=== PATIENT | female | born 1990 | race Hispanic/Latino ===

== ENCOUNTER 2017-10-01 09:17 | Inpatient (IN) | payer OTHER ==
[2017-10-01] MEDS ORDERED: Ondansetron HCl/PF 4 MG/2 ML Vial ONE (09:39)
[2017-10-01 09:54] LABS: #Basophils 0.1 thou/uL (0.0-0.2); #Eosinphils 0.3 thou/uL (0.0-0.7); #Lymphocytes 2.4 thou/uL (1.20-3.40); #Monocytes 0.7 thou/uL (0.11-0.59); #Neutrophils 11.5 thou/uL (1.40-6.50); %Basophils 0.5 % (0.0-1.0); %Eosinophils 1.8 % (0.0-10.0); %Lymphocytes 16.1 % (21.0-51.0); %Monocytes 4.8 % (0.0-10.0); %Neutrophils 76.8 % (42.0-75.0); Hemoglobin 12.7 g/dL (12.0-16.0); Mean Corpuscular HGB CONC 33.3 g/dL (32.0-36.0); Mean Corpuscular Hemoglobin 29.6 pg (27.0-31.0); Mean Platelet Volume 6.5 fL (7.4-10.4); Platelet Count 415 thou/uL (130-400); RBC Distribution Width 13.6 % (11.5-14.5); Red Blood Cell (RBC) Count 4.28 mill/uL (4.20-5.40); White Blood Cell (WBC) Count 14.9 thou/uL (4.8-10.8)
[2017-10-01 10:17] LABS: ALT (SGPT) 21 U/L (8-55); AST (SGOT) 23 U/L (5-34); Albumin 3.6 g/dL (3.5-5.0); Alkaline Phosphatase 166 U/L (40-150); Anion Gap 13 mmol/L (10-20); BUN (Urea Nitrogen) 7 mg/dL (7.0-18.7); Bilirubin, Total 0.6 mg/dL (0.2-1.2); Calc. Creatinine Clearance 0 mL/min (70-130); Calcium 9.3 mg/dL (7.8-10.44); Carbon Dioxide 23 mmol/L (22-29); Chloride 106 mmol/L (98-107); Estimated GFR-MDRD Greater than 90; Globulin 3.9 g/dL (2.4-3.5); Glucose 90 mg/dL (70-105); Protein, Total 7.5 g/dL (6.0-8.3); Sodium 138 mmol/L (136-145)
[2017-10-01] MEDS ORDERED: Clindamycin/D5W 900 mg/50 ml Premix Bag ONE (11:13)
[2017-10-01] MEDS ORDERED: Sodium Chloride 0.9% 1,000 ML IV SCH (11:15)
[2017-10-01] MEDS ORDERED: Promethazine HCl 25 MG/ML VIAL IM PRN (11:35)
[2017-10-01] MEDS ORDERED: Ondansetron HCl/PF 4 MG/2 ML Vial IVP PRN (11:35)
--- NOTE | 2017-10-01 12:17 | ULT ---
PELVIC ULTRASOUND INCLUDIGN TRANSABDOMINAL AND VASCULAR DUPLEX WITH COLOR AND SPECTRAL DOPPLER IMAGIN G: HISTORY: A 27-year-old female with bleeding. FINDINGS: The uterus is enlarged measuring 11.1 x 3.4 x 9.4 cm. The endometrium approximates 2.7 cm in thickne ss. The right ovary measures 1.7 x 1.9 x 3.5 cm. The left ovary measures 1.7 x 3.1 x 3.2 cm. No ev idence of overt retained products of conception. Vascular duplex with color and spectral Doppler imaging demonstrates no evidence for ovarian torsion. No abscess or abnormal fluid collection. IMPRESSION: enlarged uterus with heterogeneously thickened endometrium at 2.7 cm. No evidence for ret ained products of conception. Findings were discussed with Dr. Jordan by phone at 10:51 a.m. CODE CR POS: DIOR
[2017-10-01] MEDS: HYDROcodone/Acetaminophen 7.5/325 mg Tablet PO PRN ×3 (12:50→20:32)
[2017-10-01] MEDS: Clindamycin/D5W 900 MG in Premix Bag 1 BAG IVPB SCH ×2 (12:52→20:07)
[2017-10-01] MEDS: Dextrose 5%-Lactated Ringers 1,000 ML IV SCH ×2 (12:54→20:10)
[2017-10-01] MEDS: Gentamicin Sulfate 80 MG in Premix Bag 1 BAG IVPB SCH ×2 (12:56→21:42)
[2017-10-01 15:26] VITALS: BMI 39.5
[2017-10-01] MEDS: Ibuprofen 600 MG TAB PO SCH (17:05)
--- NOTE | 2017-10-01 17:42 | HP ---
ADMITTING PHYSICIAN: Zoran Jordan M.D. CHIEF COMPLAINT: Abdominal pain, vaginal bleeding. HISTORY OF PRESENT ILLNESS: Ms. Joy is a 27-year-old female, , who is reportedly s tatus post uncomplicated vaginal delivery at [facility] a week ago. She presented by ambulance complaining of severe abdominal pain and vaginal bleeding. She reports that at the time of her deliv blair that she had an uncomplicated spontaneous vaginal delivery and that the placenta was delivered in tact. She denies any type of attempted manual extraction or difficulties during her delivery. She w as evaluated here in the emergency room and I was called for further evaluation. She did report in t he ambulance that she had a temperature up to 100 with some nausea, but she has had no fever, chills, back pain, or dysuria. PAST OBSTETRICAL HISTORY: Two uncomplicated vaginal deliveries as above. PAST MEDICAL HISTORY: Unremarkable. PAST SURGICAL HISTORY: Cholecystectomy. CURRENT MEDICATIONS: vitamins. ALLERGIES: None reported. SOCIAL HISTORY: She denies tobacco, alcohol, or drug use. REVIEW OF SYSTEMS: Positive for fever, positive for malaise. She denies shortness of breath. She d enies chest pain. She does report vaginal bleeding and cramping. PHYSICAL EXAMINATION: VITAL SIGNS: On admission in the ER; her blood pressure is 135/71, her pulse is 99, O2 sat on room a ir is 96, her temperature is 97.8, and her respirations are 18. CHEST: Clear to auscultation. CARDIOVASCULAR: Regular rate and rhythm. ABDOMEN: Shows fundal tenderness, but her abdomen is not rigid and there is no rebound. She does chaney ve on pelvic examination, mild to moderate amount of vaginal bleeding seen. LABORATORY DATA: Admitting laboratories show a white count of 14.9, hemoglobin 12.7, hematocrit of 3 8.1, and a platelet count of 415. Her chemistries were normal and she has a BUN of 7 and a creatinin e of 0.6. Ultrasound is done in the emergency room and although was initially reported to the ER physician that there was concern for retained products, I did speak with Dr. Howard personally to review the lms and at this point he sees no evidence of retained products of conception. She just simply shows a uterus. ASSESSMENT: 1. Suspected endometritis. 2. Status post vaginal delivery. 3. No evidence of retained products at this time. PLAN: At this time, the patient will be admitted for antibiotics. Blood cultures have been ordered in the ER. We will begin gentamicin and clindamycin as she is now a week and we will care fully observe her course. She will get daily CBCs and she will be watched carefully.
[2017-10-01] MEDS ORDERED: Ampicillin 2 GM in Sodium Chloride 0.9% 100 ML IVPB SCH (18:00)
[2017-10-01] MEDS: Ampicillin 2 GM, Syringe 5.2 ML in Sterile Water 14.8 ML SLOW IVP SCH (18:23)
[2017-10-02] MEDS: Ampicillin 2 GM, Syringe 5.2 ML in Sterile Water 14.8 ML SLOW IVP SCH ×4 (00:21→17:47)
[2017-10-02] MEDS: Ibuprofen 600 MG TAB PO SCH ×4 (00:21→17:49)
[2017-10-02] MEDS: Clindamycin/D5W 900 MG in Premix Bag 1 BAG IVPB SCH ×3 (03:50→19:30)
[2017-10-02] MEDS: Dextrose 5%-Lactated Ringers 1,000 ML IV SCH (03:50)
[2017-10-02] MEDS: HYDROcodone/Acetaminophen 7.5/325 mg Tablet PO PRN ×2 (03:56→10:08)
[2017-10-02 05:42] LABS: #Basophils 0.1 thou/uL (0.0-0.2); #Eosinphils 0.1 thou/uL (0.0-0.7); #Lymphocytes 0.9 thou/uL (1.20-3.40); #Monocytes 0.5 thou/uL (0.11-0.59); #Neutrophils 8.3 thou/uL (1.40-6.50); %Basophils 0.6 % (0.0-1.0); %Eosinophils 0.7 % (0.0-10.0); %Lymphocytes 8.8 % (21.0-51.0); %Monocytes 4.8 % (0.0-10.0); %Neutrophils 85.2 % (42.0-75.0); Hemoglobin 11.1 g/dL (12.0-16.0); Mean Corpuscular HGB CONC 33.6 g/dL (32.0-36.0); Mean Corpuscular Volume 89.4 fl (81.0-99.0); Mean Platelet Volume 6.5 fL (7.4-10.4); Platelet Count 389 thou/uL (130-400); RBC Distribution Width 13.7 % (11.5-14.5); White Blood Cell (WBC) Count 9.8 thou/uL (4.8-10.8)
[2017-10-02] MEDS: Gentamicin Sulfate 80 MG in Premix Bag 1 BAG IVPB SCH ×3 (05:48→22:08)
--- NOTE | 2017-10-02 06:11 | PRG ---
DATE OF SERVICE: 10/02/2017 SUBJECTIVE: The patient looks much better this morning, states she feels better, and was actually ab le to have a bowel movement. OBJECTIVE: VITAL SIGNS: Her temperature max was 101.6. Her temperature now is 98.6. Her pulse is 105, respira tions are 20, and her blood pressure is 129/66. ABDOMEN: Her abdomen is much less tender this morning and there is no guarding or rebound. GENITOURINARY: There is minimal vaginal bleeding. LABORATORY DATA: This morning show white count down to 9.8, hemoglobin of 11.1, hematocrit of 33.1 a nd platelet count of 389. ASSESSMENT: endometritis resolving on triple antibiotics. Ampicillin was added to gentam icin, clindamycin yesterday afternoon for her temperature spike. She has improved since that time. Blood cultures, urine culture, and vaginal culture pending. PLAN: Would continue triple antibiotics for another 24 hours and at that point, consider switching t o p.o. antibiotics. The patient is improving, but she will be watched closely.
[2017-10-02] MEDS: Docusate 100 MG CAP PO SCH ×2 (07:48→19:31)
[2017-10-03] MEDS: Ampicillin 2 GM, Syringe 5.2 ML in Sterile Water 14.8 ML SLOW IVP SCH ×2 (00:16→05:50)
[2017-10-03] MEDS: Ibuprofen 600 MG TAB PO SCH ×3 (00:43→12:13)
[2017-10-03] MEDS: Clindamycin/D5W 900 MG in Premix Bag 1 BAG IVPB SCH (04:16)
[2017-10-03 05:48] LABS: #Eosinphils 0.3 thou/uL (0.0-0.7); #Lymphocytes 1.5 thou/uL (1.20-3.40); #Monocytes 0.4 thou/uL (0.11-0.59); #Neutrophils 5.5 thou/uL (1.40-6.50); %Basophils 0.6 % (0.0-1.0); %Eosinophils 3.4 % (0.0-10.0); %Lymphocytes 19.3 % (21.0-51.0); %Monocytes 5.7 % (0.0-10.0); Hemoglobin 10.7 g/dL (12.0-16.0); Mean Corpuscular HGB CONC 32.1 g/dL (32.0-36.0); Mean Corpuscular Hemoglobin 28.6 pg (27.0-31.0); Mean Corpuscular Volume 89.3 fl (81.0-99.0); Mean Platelet Volume 6.5 fL (7.4-10.4); Platelet Count 374 thou/uL (130-400); RBC Distribution Width 13.5 % (11.5-14.5); Red Blood Cell (RBC) Count 3.73 mill/uL (4.20-5.40); White Blood Cell (WBC) Count 7.8 thou/uL (4.8-10.8)
[2017-10-03] MEDS: Gentamicin Sulfate 80 MG in Premix Bag 1 BAG IVPB SCH (05:58)
--- NOTE | 2017-10-03 08:18 | PRG ---
DATE OF SERVICE: 10/03/2017 SUBJECTIVE: The patient is a 27-year-old female, who presented to Labor and Delivery with fever and abdominal pain. She was diagnosed with endometritis and was ultimately placed on ampicillin, gentamicin, and clindamycin and has responded well. She has been afebrile now for ove r 24 hours. She reports that she is feeling much better. Her pain is much improved. Her bleeding i s minimal. The patient will be 48 hours of true febrile range temperatures this evening around 5:00, at which time she can be reevaluated for possible discharge this evening. OBJECTIVE: VITAL SIGNS: Blood pressure is 136/64, temperature 98.4, pulse of 86, respiratory rate of 18. GENERAL: She appears to be in no acute distress. She is alert, oriented, cooperative, and pleasant to interact with. HEENT: Head is normocephalic, atraumatic. ABDOMEN: Soft. She says she has some minimal tenderness that she believes is just because she needs to go to the bathroom. EXTREMITIES: Nontender, nonedematous. LABORATORY STUDIES: White count this morning 7.8, hemoglobin 10.7, hematocrit 33.3, platelets of 374 ,000. ASSESSMENT AND PLAN: The patient is a 27-year-old female now hospital day #3, on triple antibiotics for endometritis. The patient has responded well to treatment and patient will be reevalu ated this evening for possible discharge.
[2017-10-03] MEDS: Docusate 100 MG CAP PO SCH (08:27)
[2017-10-03 11:32] VITALS: BP 115/64
[2017-10-03 14:50] VITALS: TEMP 98
--- NOTE | 2017-10-04 07:09 | DIS ---
DATE OF ADMISSION: 10/01/2017 DATE OF DISCHARGE: 10/03/2017 DIAGNOSIS: endometritis. PROCEDURES: Transvaginal ultrasound, IV antibiotic therapy. HOSPITAL COURSE: Patient was admitted on 10/01/2017, with diagnosis of endometritis after delivery with Dr. Turner at [facility] a week prior. She had a pelvic ultrasound with no evidence of retained products and was admitted for IV antibiotic therapy. She received IV ampicillin, gentamicin and clindamycin, and after she remained afebrile for 48 hours with improved clinical exam, the patient was meeting all milestones for discharge home. FOLLOWUP: Dr. Turner at [facility] as scheduled. DISCHARGE MEDICATIONS: The new prescriptions: Continue home medications as needed. DIET: Regular. ACTIVITY: Pelvic rest. INSTRUCTIONS: The patient was instructed to call the clinic or go to the emergency room for a fever over 100.4, heavy vaginal bleeding, uncontrolled pain , or other concerns. JAGJIT
== END 2017-10-03 15:51 | disposition home or self-care (01) | DRG 776 ==
LOC: ERS 09:17 → 3SW 10:38
PROVIDERS: ADMIT Obstetrics & Gynecology; ATTEND Obstetrics & Gynecology
DX: O86.12 Endometritis following delivery (principal)
CPT/HCPCS: 36415; 76856; 80053; 83605; 85025; 86850; 86900; 86901; 87040; 87070; 87077; 87086; 96361; 96365; 96375; 96376; A4216; A4353; J0290; J1580; J2270; J2405; J3490

== ENCOUNTER 2020-05-27 20:08 | Emergency (ER) | payer SELFPAY ==
[2020-05-27] MEDS ORDERED: Meclizine HCl 25 MG TAB ONE (21:17)
== END 2020-05-27 21:25 | disposition home or self-care (01) ==
LOC: ERS 20:08
DX: R42 Dizziness and giddiness (principal); F41.9 Anxiety disorder, unspecified
CPT/HCPCS: 99283

== ENCOUNTER 2020-07-18 00:50 | Emergency (ER) | payer SELFPAY ==
[2020-07-18 01:19] LABS: Bilirubin Negative (Negative); Blood, Urine Negative (Negative); Clarity Clear (Clear); Glucose, Urine (Dipstick) Normal (Negative); Ketone, Urine Negative (Negative); Leukocyte 250 Leu/uL (Negative); Nitrite Negative (Negative); Protein, Urine (Dipstick) Negative (Neg-Trace); RBC/HPF 0-3 HPF (0-3); Specific Gravity, Urine 1.013 (1.002-1.036); Urobilinogen Normal mg/dL (Less than 2)
[2020-07-18 01:20] LABS: Bacteria/HPF 1+ HPF (None Seen)
[2020-07-18 01:41] LABS: Pregnancy Test - Urine (BHCG) POSITIVE (Negative); Pregu Control Background? CLEAR/WHITE (CLR/WHITE); Pregu Control Bar Appear? YES (CONTROL BAR)
[2020-07-18 01:42] LABS: Specific Gravity 1.013 (1.002-1.036)
--- NOTE | 2020-07-18 08:47 | ULT ---
Pelvic sonogram transvaginal imaging with duplex evaluation HISTORY: Pelvic pain and bleeding. FINDINGS: Urinary bladder is decompressed. Uterus has a homogeneous echotexture and measures up to 10 .8 cm. Endometrial thickness 1.6 cm. Tiny cystic structure centered within the fundal endometrium correlates with 5 weeks 2 days gestational size. No internal content evident. No free fluid in the pelvis. Corpus luteum of the left ovary 3.0 cm. Right ovary has a normal appearance. Good color and spectral Doppler flow within each ovary. IMPRESSION : Tiny cystic structure within the endometrial cavity may represent a very early gestational sac. 5 wee ks 2 days size. Please correlate with other clinical findings regarding the possibility of early .
== END 2020-07-18 04:33 | disposition home or self-care (01) ==
LOC: ERS 00:50
DX: O23.41 Unspecified infection of urinary tract in pregnancy, first trimester (principal); O99.341 Other mental disorders complicating pregnancy, first trimester; F41.9 Anxiety disorder, unspecified; Z3A.01 Less than 8 weeks gestation of pregnancy
CPT/HCPCS: 36415; 76856; 81003; 81015; 81025; 84702